=== PATIENT | male | born 1955 | race Caucasian/White ===

== ENCOUNTER 2018-06-02 12:32 | Day surgery (SDC) | payer OTHER ==
[~2018-06-02] VITALS: Ht 182.9 cm; Wt 83.4 kg
[~2018-06-02 12:32] MED LIST: ATOR1TAB19 PO; CULT10CA2 PO; DIFI200T PO; FECAL MICROBIOTA PREPARATION 250 ML BTL (J3590) XX ONE; FENO145T13 PO; FLOM0.4C39 PO; FOLI400T PO; LIDOCAINE 2% INJ 100 MG/5 ML SDV (FOR ANES.) As Ordered ONE; MAGN400C2 PO; NS 1,000 ML IV ONE; POTA1TAB14 PO; VITA100T92 PO; VITATAB11 PO
[2018-06-02] MEDS ORDERED: PROPOFOL 200 MG/20 ML VIAL As Ordered ONE (14:08)
--- NOTE | 2018-06-02 14:31 | ROOR ---
Patient Name: Cuauhtemoc Haynes Procedure Date: 06/02/2018 2:14 PM Date of : 1955 Age: 62 Room: [facility] Gender: Male Note Status: Finalized Procedure: Colonoscopy Indications: Fecal transplant for treatment of recurrent Clostridium difficile diarrhea Providers: Christiano CESAR MD Referring MD: KYLE ROSALES Requesting Provider: Medicines: Monitored Anesthesia Care Complications: No immediate complications. Procedure: Pre-Anesthesia Assessment: - The heart rate, respiratory rate, oxygen saturations, blood pressure, adequacy of pulmonary ventilation, and response to care were monitored throughout the procedure. The Colonoscope was introduced through the anus and advanced to 5 cm into the ileum. The colonoscopy was performed without difficulty. The patient tolerated the procedure well. The quality of the bowel preparation was good. Findings: Fecal Microbiota Transplant (Bacteriotherapy): Donor stool was prepared as per protocol. Approximately 250 mL of the emulsified donor stool was instilled in the cecum. A detailed colonoscopic exam could not be performed upon scope withdrawal secondary to limited visibility from the instilled stool. Impression: - Fecal Microbiota Transplant (Bacteriotherapy) performed in the cecum. - No specimens collected. Recommendation: - Stop/do NOT restart any antibiotics you were on for C difficile colitis. Avoid use of any future antibiotics if at all possible. If need for antibiotic therapy arises in the future, please notify your primary care physician for review/discussion. Christiano Cesar MD Christiano CESAR MD 06/02/2018 2:31:29 PM This report has been signed electronically. Number of Addenda: 0 Note Initiated On: 06/02/2018 2:14 PM Estimated Blood Loss: Estimated blood loss: none.
[2018-06-02 15:00] VITALS: BP 149/91
== END 2018-06-02 15:26 | disposition home or self-care (01) ==
LOC: M OPP 12:32
PROVIDERS: ATTEND Internal Medicine Gastroenterology
DX: A04.71 Enterocolitis due to Clostridium difficile, recurrent (principal)

== ENCOUNTER → 2019-03-20 | Outpatient (REF) | payer MEDICARE, OTHER ==
[~2019-03-20] MED LIST changes: -FECAL MICROBIOTA PREPARATION 250 ML BTL (J3590) XX ONE; -LIDOCAINE 2% INJ 100 MG/5 ML SDV (FOR ANES.) As Ordered ONE; -NS 1,000 ML IV ONE; +VITA100T89 PO; -VITA100T92 PO
[2019-03-20 18:37] LABS: CLOSTRIDIUM DIFFICILE PCR NEGATIVE (NEGATIVE)
== END ==
LOC: M LAB REF 15:53
PROVIDERS: ATTEND Internal Medicine Gastroenterology
DX: K52.3 Indeterminate colitis (principal)

== ENCOUNTER → 2019-09-12 | Outpatient (CLI) | payer MEDICARE, OTHER ==
[~2019-09-12] MED LIST changes: -FENO145T13 PO; +FENO145T7 PO
[2019-09-12 13:58] LABS: HEMATOCRIT 48.7 % (42.0-52.0); HEMOGLOBIN 16.2 g/dl (13.5-17.5); MEAN CORPUSCULAR HEMOGLOBIN 33.1 pg (27.0-33.0); MEAN CORPUSCULAR HGB CONC 33.3 g/dl (32.0-36.5); MEAN CORPUSCULAR VOLUME 99.4 fl (80.0-96.0); PLATELET COUNT, AUTOMATED 366 10^3/uL (150-450); WHITE BLOOD COUNT 9.1 10^3/uL (4.0-10.0)
[2019-09-12 14:54] LABS: ALBUMIN 3.4 GM/DL (3.2-5.2); ALT/SGPT 53 U/L (12-78); BILIRUBIN,TOTAL 0.6 MG/DL (0.2-1.0); BLOOD UREA NITROGEN 4 MG/DL (7-18); CALCIUM LEVEL 9.4 MG/DL (8.8-10.2); CARBON DIOXIDE LEVEL 24 MEQ/L (21-32); CHLORIDE LEVEL 107 MEQ/L (98-107); CREATININE FOR GFR 0.88 MG/DL (0.70-1.30); GLOMERULAR FILTRATION RATE > 60.0 (>49); GLUCOSE, FASTING 95 MG/DL (70-100); IMMUNOGLOBULIN G 1060 MG/DL (681-1648); IMMUNOGLOBULIN M 66.7 MG/DL (40-230); POTASSIUM SERUM 3.6 MEQ/L (3.5-5.1); SODIUM LEVEL 139 MEQ/L (136-145)
[2019-09-19 15:19] LABS: ANTI THROMBIN 3 FUNCT ACTIVITY 105 % (75-135); ANTIPHOSPHATIDYLSERINE IgA 3 APS IgA (0-20); ANTIPHOSPHATIDYLSERINE IgG 4 GPS IgG (0-11); ANTIPHOSPHATIDYLSERINE IgM 11 MPS IgM (0-25); BETA-2 GLYCOPROTEIN I ABY IGA <9 (0-25); BETA-2 GLYCOPROTEIN I ABY IGG <9 (0-20); BETA-2 GLYCOPROTEIN I ABY IGM <9 (0-32); CARDIOLIPIN IGA ANTIBODY <9 APL U/mL (0-11); CARDIOLIPIN IGG ANTIBODY <9 GPL U/mL (0-14); CARDIOLIPIN IGM ANTIBODY <9 MPL U/mL (0-12); HOMOCYST(E)INE SERUM 22.9 umol/L (0.0-17.2); PROTEIN C FUNCTIONAL ACTIVITY 106 % (73-180); PROTEIN S FUNCTIONAL ACTIVITY 198 % (63-140)
== END ==
LOC: M LAB 12:57
PROVIDERS: ATTEND Internal Medicine Hematology
DX: Z51.81 Encounter for therapeutic drug level monitoring (principal); Z79.01 Long term (current) use of anticoagulants; I82.411 Acute embolism and thrombosis of right femoral vein

== ENCOUNTER 2023-05-18 09:39 | Day surgery (SDC) | payer MEDICARE, OTHER ==
[~2023-05-18] VITALS: Ht 182.9 cm; Wt 71.7 kg
[~2023-05-18 09:39] MED LIST changes: +EQL50TAB2 PO; -FOLI400T PO; +FOLI400T13 PO; +META0.52 PO; +NICO14DI24 TD; +NS 1,000 ML IV ONE; +POTA-298 PO; +POTA10CA60 PO; -POTA1TAB14 PO
[2023-05-18] MEDS ORDERED: fentaNYL 100 MCG/2 ML INJECTION As Ordered ONE (10:48)
[2023-05-18] MEDS ORDERED: LIDOCAINE 2% 100MG/5ML SDV (FOR ANES.) As Ordered ONE (10:49)
[2023-05-18] MEDS ORDERED: propofoL 200 MG/20 ML VIAL As Ordered ONE (10:49)
[2023-05-18 11:28] VITALS: TEMP 97.4
[2023-05-18 12:11] VITALS: BP 102/55; O2SAT 98
== END 2023-05-18 12:12 | disposition home or self-care (01) ==
LOC: M OPP 09:39
PROVIDERS: ATTEND Internal Medicine Gastroenterology
DX: R19.7 Diarrhea, unspecified (principal); K51.90 Ulcerative colitis, unspecified, without complications; R63.4 Abnormal weight loss; Z79.02 Long term (current) use of antithrombotics/antiplatelets; Z79.899 Other long term (current) drug therapy; Z87.19 Personal history of other diseases of the digestive system
CPT/HCPCS: 43239; 45380; 87507; 88305; J3010

== ENCOUNTER 2023-06-08 12:38 | Day surgery (SDC) | payer MEDICARE, OTHER ==
[~2023-06-08] VITALS: Ht 182.9 cm; Wt 75.7 kg
[~2023-06-08 12:38] MED LIST changes: -NS 1,000 ML IV ONE
[2023-06-08] MEDS ORDERED: FECAL MICROBIOTA TRANSPLANT PREPARATION 35ML BAG XX ONE (13:00)
[2023-06-08] MEDS: NS 1,000 ML IV ONE (13:51)
[2023-06-08 15:30] VITALS: TEMP 98.6
[2023-06-08 15:46] VITALS: BP 115/60; O2SAT 100
== END 2023-06-08 15:52 | disposition home or self-care (01) ==
LOC: M OPP 12:38
PROVIDERS: ATTEND Internal Medicine Gastroenterology
DX: A04.72 Enterocolitis due to Clostridium difficile, not specified as recurrent (principal); F17.200 Nicotine dependence, unspecified, uncomplicated; Z79.02 Long term (current) use of antithrombotics/antiplatelets; Z79.899 Other long term (current) drug therapy

== ENCOUNTER 2023-07-12 13:11 | Day surgery (SDC) | payer MEDICARE, OTHER ==
[~2023-07-12] VITALS: Ht 182.9 cm; Wt 80.8 kg
[2023-07-12] MEDS: NS 1,000 ML IV ONE (13:50)
[2023-07-12] MEDS ORDERED: propofoL 200 MG/20 ML VIAL As Ordered ONE (14:19)
[2023-07-12] MEDS ORDERED: LIDOCAINE 2% 100MG/5ML SDV (FOR ANES.) As Ordered ONE (14:19)
[2023-07-12 15:38] VITALS: BP 147/73; TEMP 96.4; O2SAT 97
== END 2023-07-12 15:40 | disposition home or self-care (01) ==
LOC: M OPP 13:11
PROVIDERS: ATTEND Internal Medicine Gastroenterology
DX: K52.9 Noninfective gastroenteritis and colitis, unspecified (principal); Z53.8 Procedure and treatment not carried out for other reasons; Z79.02 Long term (current) use of antithrombotics/antiplatelets; Z79.899 Other long term (current) drug therapy; F17.200 Nicotine dependence, unspecified, uncomplicated

== ENCOUNTER 2023-09-03 13:45 | Outpatient (CLI) | payer MEDICARE, OTHER ==
[~2023-09-03] VITALS: Ht 182.9 cm; Wt 84.0 kg
[~2023-09-03 13:45] MED LIST changes: -POTA10CA60 PO; +POTA10CA70 PO
[2023-09-03 14:15] VITALS: BP 132/66; O2SAT 99
[2023-09-03] MEDS: VEDOLIZUMAB 300 MG in NS 250 ML IV ONE (14:16)
[2023-09-03 15:25] VITALS: BP 148/82; O2SAT 97
== END 2023-09-03 15:25 | disposition home or self-care (01) ==
LOC: M INFU 13:45
PROVIDERS: ATTEND Internal Medicine Gastroenterology
DX: K50.90 Crohn's disease, unspecified, without complications (principal)
CPT/HCPCS: 96365; J3380

== ENCOUNTER 2023-09-17 15:39 | Outpatient (CLI) | payer MEDICARE, OTHER ==
[~2023-09-17] VITALS: Ht 182.9 cm; Wt 81.2 kg
[2023-09-17 16:07] VITALS: BP 144/86; O2SAT 97
[2023-09-17] MEDS: VEDOLIZUMAB 300 MG in NS 250 ML IV ONE (16:12)
[2023-09-17 16:54] VITALS: BP 136/78; O2SAT 97
== END 2023-09-17 16:55 | disposition home or self-care (01) ==
LOC: M INFU 15:39
PROVIDERS: ATTEND Internal Medicine Gastroenterology
DX: K50.90 Crohn's disease, unspecified, without complications (principal)
CPT/HCPCS: 96365; J3380

== ENCOUNTER 2023-10-15 16:00 | Outpatient (CLI) | payer MEDICARE, OTHER ==
[~2023-10-15] VITALS: Ht 182.9 cm; Wt 84.1 kg
[2023-10-15 15:55] VITALS: BP 145/77; O2SAT 96
[2023-10-15] MEDS: VEDOLIZUMAB 300 MG in NS 250 ML IV ONE (16:08)
[2023-10-15 16:50] VITALS: BP 158/89; O2SAT 96
== END 2023-10-15 16:50 | disposition home or self-care (01) ==
LOC: M INFU 16:00
PROVIDERS: ATTEND Internal Medicine Gastroenterology
DX: K50.90 Crohn's disease, unspecified, without complications (principal)
CPT/HCPCS: 96365; J3380

== ENCOUNTER 2023-12-10 15:00 | Outpatient (CLI) | payer MEDICARE, OTHER ==
[~2023-12-10] VITALS: Ht 182.9 cm; Wt 86.4 kg
[2023-12-10 15:00] VITALS: BP 146/84; O2SAT 97
[2023-12-10] MEDS: VEDOLIZUMAB 300 MG in NS 250 ML IV ONE (15:20)
[2023-12-10 16:00] VITALS: BP 148/82; TEMP 36.8; O2SAT 98
== END 2023-12-10 16:00 ==
LOC: M INFU 15:00
PROVIDERS: ATTEND Internal Medicine Gastroenterology
DX: K50.90 Crohn's disease, unspecified, without complications (principal)
CPT/HCPCS: 96413; J3380

== ENCOUNTER 2024-02-04 15:15 | Outpatient (CLI) | payer MEDICARE, OTHER ==
[~2024-02-04] VITALS: Ht 185.4 cm; Wt 86.3 kg
[2024-02-04 15:20] VITALS: BP 140/84; TEMP 97.2; O2SAT 97
[2024-02-04] MEDS: VEDOLIZUMAB 300 MG in LR 250 ML IV ONE (16:01)
[2024-02-04 16:40] VITALS: BP 150/80; O2SAT 98
== END 2024-02-04 16:40 ==
LOC: M INFU 15:15
PROVIDERS: ATTEND Internal Medicine Gastroenterology
DX: K50.90 Crohn's disease, unspecified, without complications (principal)
CPT/HCPCS: 96365; J3380

== ENCOUNTER → 2024-03-31 | Outpatient (CLI) | payer MEDICARE, OTHER ==
[~2024-03-31] VITALS: Ht 182.9 cm; Wt 81.2 kg
[2024-03-31 15:12] VITALS: BP 139/82; O2SAT 96
[2024-03-31] MEDS: VEDOLIZUMAB 300 MG in NS 250 ML IV ONE (15:25)
[2024-03-31 16:05] VITALS: BP 146/82; O2SAT 96
== END ==
LOC: M INFU 14:34
PROVIDERS: ATTEND Internal Medicine Gastroenterology
DX: K50.90 Crohn's disease, unspecified, without complications (principal); Z88.8 Allergy status to other drugs, medicaments and biological substances
CPT/HCPCS: 96413; J3380

== ENCOUNTER 2024-05-26 14:39 | Outpatient (CLI) | payer MEDICARE, OTHER ==
[~2024-05-26] VITALS: Ht 182.9 cm; Wt 86.3 kg
[2024-05-26 14:55] VITALS: BP 140/84; O2SAT 96
[2024-05-26] MEDS: VEDOLIZUMAB 300 MG in NS 250 ML IV ONE (15:16)
[2024-05-26 15:53] VITALS: BP 130/78; O2SAT 95
== END 2024-05-26 16:00 ==
LOC: M INFU 14:39
PROVIDERS: ATTEND Internal Medicine Gastroenterology
DX: K50.90 Crohn's disease, unspecified, without complications (principal)
CPT/HCPCS: 96413; J3380

== ENCOUNTER 2024-07-21 15:00 | Outpatient (CLI) | payer MEDICARE, OTHER ==
[~2024-07-21] VITALS: Ht 185.4 cm; Wt 83.0 kg
[2024-07-21 15:08] VITALS: BP 154/76; O2SAT 97
[2024-07-21] MEDS: VEDOLIZUMAB 300 MG in NS 250 ML IV ONE (15:53)
[2024-07-21 16:29] VITALS: BP 132/76; O2SAT 95
== END 2024-07-21 16:30 ==
LOC: M INFU 15:00
PROVIDERS: ATTEND Internal Medicine Gastroenterology
DX: K50.919 Crohn's disease, unspecified, with unspecified complications (principal)
CPT/HCPCS: 96413; J3380

== ENCOUNTER 2024-11-10 14:45 | Outpatient (CLI) | payer MEDICARE, OTHER ==
[~2024-11-10] VITALS: Ht 185.4 cm; Wt 81.8 kg
[~2024-11-10 14:45] MED LIST changes: -EQL50TAB2 PO; -FLOM0.4C39 PO; +TAMS-18 PO; +VITA1TAB82 PO
[2024-11-10 14:50] VITALS: BP 129/82; O2SAT 97
[2024-11-10] MEDS: VEDOLIZUMAB 300 MG in NS 250 ML IV ONE (15:37)
[2024-11-10 16:15] VITALS: BP 143/75; O2SAT 97
== END 2024-11-10 16:15 ==
LOC: M INFU 14:45
PROVIDERS: ATTEND Internal Medicine Gastroenterology
DX: K50.90 Crohn's disease, unspecified, without complications (principal)
CPT/HCPCS: 96413; J3380

== ENCOUNTER 2025-01-05 15:00 | Outpatient (CLI) | payer MEDICARE, OTHER ==
[~2025-01-05] VITALS: Ht 182.9 cm; Wt 87.3 kg
[2025-01-05 14:50] VITALS: BP 135/76; O2SAT 96
[2025-01-05] MEDS: VEDOLIZUMAB 300 MG in NS 250 ML IV ONE (15:29)
[2025-01-05 16:10] VITALS: BP 131/78; O2SAT 96
== END 2025-01-05 16:10 ==
LOC: M INFU 15:00
PROVIDERS: ATTEND Internal Medicine Gastroenterology
DX: K50.118 Crohn's disease of large intestine with other complication (principal)
CPT/HCPCS: 96413; J3380

== ENCOUNTER 2025-03-02 14:59 | Outpatient (CLI) | payer MEDICARE, OTHER ==
[~2025-03-02] VITALS: Ht 182.9 cm; Wt 84.1 kg
[2025-03-02 15:00] VITALS: BP 159/79; O2SAT 98
[2025-03-02] MEDS: VEDOLIZUMAB 300 MG in NS 250 ML IV ONE (15:32)
[2025-03-02 16:10] VITALS: BP 134/77; O2SAT 95
== END 2025-03-02 16:10 | disposition home or self-care (01) ==
LOC: M INFU 14:59
PROVIDERS: ATTEND Internal Medicine Gastroenterology
DX: K50.118 Crohn's disease of large intestine with other complication (principal)
CPT/HCPCS: 96413; J3380